=== PATIENT | male | born 1955 | race Asian ===

== ENCOUNTER → 2024-06-29 | Outpatient (CLI) | payer MEDICARE, MEDICAID ==
[~2024-06-29] MED LIST: ATOR20TA50 PO; COLC0.6T56 PO; INDO-34 PO; METF-370 PO
== END | disposition home or self-care (01) ==
LOC: LAB 08:34
PROVIDERS: ATTEND Podiatrist
DX: M10.071 Idiopathic gout, right ankle and foot (principal)
CPT/HCPCS: 36415; 84550

== ENCOUNTER 2024-07-20 09:06 | Inpatient (IN) | payer MEDICARE, MEDICAID ==
[~2024-07-20] VITALS: Ht 162.6 cm; Wt 65.3 kg
[~2024-07-20 09:06] MED LIST changes: +ALLO300T2 PO; +LISI20TA56 PO; +METF-929 PO
[2024-07-20 10:05] LABS: Basophils # (auto) 0.1 10 ^3/uL (0-0.2); Basophils % (auto) 0.9 % (0.0-2.0); Hemoglobin 12.9 g/dL (13.5-17.5); Monocytes # (auto) 0.8 10 ^3/uL (0-1.3); Neutrophils # (auto) 6.8 10 ^3/uL (1.6-8.6); Red Cell Distribution Width 15.2 % (11.8-14.3)
[2024-07-20 10:09] LABS: Eosinophils % (auto) 8.7 % (0.0-7.0); Hematocrit 38.6 % (41.0-53.0); Lymphocytes # (auto) 2.4 10 ^3/uL (0.4-5.4); Lymphocytes % (auto) 21.4 % (10.0-50.0); Mean Corpuscular Hemoglobin 29.2 pg (28.0-32.0); Mean Corpuscular Hgb Conc. 33.5 g/dL (32.0-36.0); Mean Corpuscular Volume 87.2 fL (80.0-100.0); Monocytes % (auto) 7.6 % (0.0-12.0); Neutrophils % (auto) 61.4 % (37.0-80.0); Platelet Count (auto) 536 10^3/uL (140-450); Red Blood Cells 4.43 10^6/uL (4.5-5.90)
[2024-07-20] MEDS: KETOROLAC TROMETH 30 MG/ML 1ML VIAL IM ONE (10:13)
[2024-07-20 10:15] LABS: Alanine Aminotransferase 33 U/L (7-40); Albumin 4.5 g/dL (3.2-4.8); Alkaline Phosphatase 119 U/L (46-116); Anion Gap 9 (5-15); Aspartate Aminotransferase 19 U/L (13-40); BUN/Creatinine Ratio 18.8 (10.0-20.0); Blood Urea Nitrogen 24 mg/dL (9-23); Calcium 10.4 mg/dL (8.7-10.4); Carbon Dioxide 20 mmol/L (20-30); Chloride 103 mmol/L (98-107); Glucose 83 mg/dL (74-106); Potassium 4.9 mmol/L (3.5-5.1); Sodium 132 mmol/L (136-145)
[2024-07-20 10:16] LABS: Bilirubin, Total 0.2 mg/dL (0.2-1.0); Total Protein 8.8 g/dL (5.7-8.2)
[2024-07-20 10:53] LABS: Erythrocyte Sedimentation Rate 76 mm/hr (0-20)
[2024-07-20] MEDS: VANCOMYCIN 1GM/200ML 200 ML IV ONE (12:16)
[2024-07-20] MEDS: LISINOPRIL 20 MG TAB PO ONE (12:31)
[2024-07-20] MEDS ORDERED: MORPHINE SULFATE INJ 2 MG/ml SYRG IV PRN (12:45)
[2024-07-20] MEDS ORDERED: ONDANSETRON HCL 4 MG/2 ML VIAL IV PRN (12:45)
[2024-07-20] MEDS ORDERED: NITROGLYCERIN 0.4 MG SL TAB SL PRN (12:45)
[2024-07-20] MEDS ORDERED: DOCUSATE SOD 100 MG CAP PO PRN (12:45)
[2024-07-20] MEDS ORDERED: DEXTROSE (50%) 50ML SYRG IV PRN (12:45)
[2024-07-20] MEDS: SODIUM CHLORIDE 0.9% 1,000 ML IV SCH (12:49)
[2024-07-20] MEDS: ENOXAPARIN SOD 40 MG/0.4 ML SYRINGE SC SCH (12:57)
[2024-07-20] MEDS: PANTOPRAZOLE 40 MG/10 ML VIAL INJ IV ONE (13:52)
[2024-07-20] MEDS: COLCHICINE 0.6 MG CAP PO ONE (14:00)
[2024-07-20] MEDS: InsuLIN REG 1unit/0.01ml Soln (100units/ml) SC SCH (17:00)
[2024-07-20] MEDS: ACCU-CHEK COMFORT CURVE STRIP VI SCH (18:25)
[2024-07-20] MEDS: HYDROcodone-ACET 5/325MG TAB PO PRN (18:36)
[2024-07-20 18:38] VITALS: PULSE 93; RESP 20; O2SAT 98
[2024-07-20 20:00] VITALS: PULSE 73; RESP 20; O2SAT 97
[2024-07-20 20:56] VITALS: BP_SYST 106; BP_SYST 138; BP_DIAS 53; BP_DIAS 84; PULSE 65; PULSE 73; RESP 20; TEMP 97.6; TEMP 98; O2SAT 95; O2SAT 97
[2024-07-20] MEDS: COLCHICINE 0.6 MG CAP PO SCH (21:41)
[2024-07-21 04:46] VITALS: BP 154/89; PULSE 75; RESP 20; TEMP 97.7; O2SAT 97
[2024-07-21 05:15] LABS: Basophils # (auto) 0.1 10 ^3/uL (0-0.2); Basophils % (auto) 0.9 % (0.0-2.0); Eosinophils # (auto) 0.7 10 ^3/uL (0-0.8); Eosinophils % (auto) 12.5 % (0.0-7.0); Hematocrit 34.8 % (41.0-53.0); Hemoglobin 11.6 g/dL (13.5-17.5); Lymphocytes % (auto) 17.5 % (10.0-50.0); Mean Corpuscular Hemoglobin 28.9 pg (28.0-32.0); Mean Corpuscular Hgb Conc. 33.2 g/dL (32.0-36.0); Monocytes # (auto) 0.5 10 ^3/uL (0-1.3); Monocytes % (auto) 8.3 % (0.0-12.0); Neutrophils # (auto) 3.5 10 ^3/uL (1.6-8.6); Neutrophils % (auto) 60.8 % (37.0-80.0); Platelet Count (auto) 447 10^3/uL (140-450); Red Cell Distribution Width 15.3 % (11.8-14.3); White Blood Cell 5.8 10^3/uL (4.4-10.8)
[2024-07-21 05:33] LABS: Alanine Aminotransferase 23 U/L (7-40); Albumin 3.7 g/dL (3.2-4.8); Alkaline Phosphatase 92 U/L (46-116); Anion Gap 7 (5-15); Aspartate Aminotransferase 14 U/L (13-40); Bilirubin, Total 0.3 mg/dL (0.2-1.0); Blood Urea Nitrogen 24 mg/dL (9-23); Calcium 9.2 mg/dL (8.7-10.4); Carbon Dioxide 21 mmol/L (20-30); Chloride 110 mmol/L (98-107); Glucose 99 mg/dL (74-106); Potassium 4.6 mmol/L (3.5-5.1); Sodium 138 mmol/L (136-145); Total Protein 7.2 g/dL (5.7-8.2)
[2024-07-21 08:39] VITALS: BP 139/83; PULSE 78; RESP 16; TEMP 97.7; O2SAT 98
[2024-07-21] MEDS: PANTOPRAZOLE 40 MG/10 ML VIAL INJ IV SCH (09:57)
[2024-07-21] MEDS: COLCHICINE 0.6 MG CAP PO ONE (10:13)
[2024-07-21 12:34] VITALS: BP 133/85; PULSE 73; RESP 18; TEMP 98.5; O2SAT 99
[2024-07-21 17:00] VITALS: BP 147/84; PULSE 74; RESP 18; TEMP 98.2; O2SAT 99
[2024-07-21 20:00] VITALS: PULSE 69; RESP 17; O2SAT 99
[2024-07-21 21:00] VITALS: BP 135/80; PULSE 69; RESP 17; TEMP 97.7; O2SAT 99
[2024-07-21] MEDS ORDERED: COLCHICINE 0.6 MG CAP PO SCH (22:00)
[2024-07-22 01:00] VITALS: BP 148/88; PULSE 81; RESP 18; TEMP 98; O2SAT 98
[2024-07-22 05:00] VITALS: BP 129/81; PULSE 93; RESP 16; TEMP 97.9; O2SAT 97
[2024-07-22 06:11] LABS: Basophils # (auto) 0 10 ^3/uL (0-0.2); Basophils % (auto) 0.3 % (0.0-2.0); Eosinophils # (auto) 0.1 10 ^3/uL (0-0.8); Eosinophils % (auto) 1.5 % (0.0-7.0); Hematocrit 41.6 % (41.0-53.0); Hemoglobin 14.3 g/dL (13.5-17.5); Lymphocytes % (auto) 37.6 % (10.0-50.0); Mean Corpuscular Hemoglobin 30.4 pg (28.0-32.0); Mean Corpuscular Hgb Conc. 34.4 g/dL (32.0-36.0); Mean Corpuscular Volume 88.3 fL (80.0-100.0); Monocytes # (auto) 0.4 10 ^3/uL (0-1.3); Monocytes % (auto) 8.1 % (0.0-12.0); Neutrophils # (auto) 2.8 10 ^3/uL (1.6-8.6); Neutrophils % (auto) 52.5 % (37.0-80.0); Nucleated Red Blood Cells % 0.1 %; Platelet Count (auto) 184 10^3/uL (140-450); Red Blood Cells 4.71 10^6/uL (4.5-5.90); Red Cell Distribution Width 14.6 % (11.8-14.3); White Blood Cell 5.4 10^3/uL (4.4-10.8)
[2024-07-22 06:18] LABS: Anion Gap 6 (5-15); Carbon Dioxide 25 mmol/L (20-30); Chloride 109 mmol/L (98-107); Potassium 3.8 mmol/L (3.5-5.1); Sodium 140 mmol/L (136-145)
[2024-07-22 06:25] LABS: Blood Urea Nitrogen 16 mg/dL (9-23); Glucose 100 mg/dL (74-106)
[2024-07-22 08:46] VITALS: BP 142/94; PULSE 79; RESP 18; TEMP 97.9; O2SAT 98
[2024-07-22] MEDS ORDERED: COLC1CAP PO (10:36)
== END 2024-07-22 12:10 | disposition home or self-care (01) | DRG 554 ==
LOC: ER 09:06 → OVERFLOW 12:38 → EAST 18:12
PROVIDERS: ADMIT Internal Medicine Geriatric Medicine; ATTEND Internal Medicine Geriatric Medicine
DX: M13.841 Other specified arthritis, right hand (principal); E87.1 Hypo-osmolality and hyponatremia; M1A.9XX1 Chronic gout, unspecified, with tophus (tophi); I16.0 Hypertensive urgency; E11.9 Type 2 diabetes mellitus without complications; D72.829 Elevated white blood cell count, unspecified; D64.9 Anemia, unspecified; Z79.899 Other long term (current) drug therapy; Z79.4 Long term (current) use of insulin
CPT/HCPCS: 36415; 73130; 80048; 80053; 82306; 82607; 82962; 83036; 84443; 84550; 85025; 85652; 86141; 87081; 96365; 96372; 96375; G0378; J1885; J2470